=== PATIENT | male | born 1950 | race Hispanic/Latino ===

== ENCOUNTER 2018-03-27 13:22 | Outpatient (RCR) | payer OTHER | END 2018-03-28 | LOC: RESP 13:22 | PROVIDERS: ATTEND Internal Medicine Pulmonary Disease | DX: R06.00 Dyspnea, unspecified (principal) ==

== ENCOUNTER 2018-04-08 11:28 | Outpatient (RCR) | payer OTHER | END 2018-04-25 | LOC: RESP 11:28 | PROVIDERS: ATTEND Internal Medicine Pulmonary Disease | DX: R06.00 Dyspnea, unspecified (principal) | CPT/HCPCS: G0238 ×2; G0424 ×2 ==

== ENCOUNTER 2018-05-08 13:59 | Outpatient (RCR) | payer OTHER | END 2018-05-26 | LOC: RESP 13:59 | PROVIDERS: ATTEND Internal Medicine Pulmonary Disease | DX: R06.00 Dyspnea, unspecified (principal) | CPT/HCPCS: G0238 ×3; G0424 ×3 ==

== ENCOUNTER 2018-05-29 13:07 | Outpatient (RCR) | payer OTHER | END 2018-06-25 | LOC: RESP 13:07 | PROVIDERS: ATTEND Internal Medicine Pulmonary Disease | DX: R06.00 Dyspnea, unspecified (principal) | CPT/HCPCS: G0238 ×6; G0424 ×6 ==

== ENCOUNTER 2018-07-24 13:00 | Outpatient (RCR) | payer OTHER | END 2018-07-26 | LOC: RESP 13:00 | PROVIDERS: ATTEND Internal Medicine Pulmonary Disease | DX: R06.00 Dyspnea, unspecified (principal) | CPT/HCPCS: G0238 ×3; G0424 ×3 ==

== ENCOUNTER 2018-08-07 13:00 | Outpatient (RCR) | payer OTHER | END 2018-08-25 | LOC: RESP 13:00 | PROVIDERS: ATTEND Internal Medicine Pulmonary Disease | DX: R06.00 Dyspnea, unspecified (principal) | CPT/HCPCS: G0238 ×3; G0424 ×3 ==